=== PATIENT | male | born 1970 | race Caucasian/White ===

== ENCOUNTER 2024-07-26 10:20 | Outpatient (AMB) | payer OTHER, SELFPAY ==
--- NOTE | 2024-07-26 10:57 | PD.ORTHCLVIS ---
Vital signs 07/26/24 10:58 Height 1.78 m Height Method Stated Weight 89.358 kg Weight Measurement Method Standing Scale BMI 28.2 BP 127/78 Blood Pressure Source Automatic Cuff Blood Pressure Location Right Upper Arm Position Sitting Respiration 18 Pulse 63 Pulse Source Monitor Temp 97.7 F Temp Source Temporal Artery Scan Pulse Oximetry (%) 95 Oxygen Delivery Method Room Air Med/Allergies Allergies & Medications Allergies Penicillins Allergy (Verified 07/26/24 10:58) Medication Reconciliation amlodipine 5 mg tablet 5 mg PO QDAY 08/22/23 [History Confirmed 07/26/24] hydrochlorothiazide 25 mg tablet 25 mg PO QAM 04/26/24 [History Confirmed 07/26/24] acetaminophen 500 mg tablet (Acetaminophen Extra Strength) 1,000 mg (2 x 500 mg) PO Q6H PRN pain #90 tabs 04/29/24 [Rx Confirmed 07/26/24] aspirin 81 mg tablet,delayed release 81 mg PO BID #60 tabs 04/29/24 [Rx Confirmed 07/26/24] oxycodone 5 mg tablet 5 mg PO Q6H PRN pain #14 tabs 05/13/24 [Rx Confirmed 07/26/24] Subjective Visit Visit for: follow up visit Immunization / Flu Flu Vaccine in the Last 12 Months: No Flu Vaccine Exclusion Criteria: No Exclusion Criteria History of Present Illness Chief complaint: SX FOLLOW UP Patient is doing well 3 months status post left arthroscopic meniscectomy. He is doing well. Pain is minimal. He wants to return to work,. Pain Pain level (0-10): 3 Pain duration: COMES AND GOES Pain quality: aching Associated signs & symptoms: none Ambulatory data Ambulatory device: none Treatments Improvement with previous injections: No Improvement with PT: No Improvement with NSAIDS: no Review of Systems Review of Systems: All systems negative unless otherwise noted in HPI. Exam Exam Patient is in no acute distress and is cooperative with the examination today. Patient has a normal mood and affect. Breathing is nonlabored. In no respiratory distress. Bilateral extremities were evaluated and demonstrates sensation intact to light touch. Palpable pedal pulses are present. No significant edema is present. Left knee incision is clean dry intact. There is minimal swelling Assessment and Plan Problem List (1) Other tear of medial meniscus, current injury, left knee, initial encounter: Status: Acute Plan: Patient is a pleasant 54-year-old Male status post left partial arthroscopic meniscectomy. He is doing well and would like to return to work. Office Procedures GNS Level of Care Nursing/Assessment Patient Status: Established Patient Nursing Assessment/Reassesment: Medication Reconciliation, Update PMH in EMR and Vital Signs Coordination of Care: Complex Care and Chronic Disease 1-5, Education Complex Pt/Fam, Consent,records obtained, informed consent and Staff clarify orders Established Patient Charge Established Patient Point Assignment: 90 Established Patient Point Charge: EP Level 3 (80-115) Past Medical History Past Medical History Have you ever been diagnosed with any of the following: Neurological Problems Seizures: No Cardiology Problems Congestive Heart Failure: No Hypertension: Yes Respiratory Problems Chronic Obstructive Pulmonary Disease (COPD): No Smoking: No Smoking Exposure: No Genital/Urinary Problems Renal Disease: No Endocrine Problems Diabetes Mellitus Type 1: No Diabetes Mellitus Type 2: No Other Problems Hospitalization: Yes ([facility]) Shingles: No Blood Transfusions: No Blood Transfusion Reaction: No Anesthesia Reactions: No Cancer: No
[2024-07-26 10:58] VITALS: BP 127/78; PULSE 63; RESP 18; TEMP 36.5; O2SAT 95; BMI 28.2
== END 2024-07-26 11:21 | disposition home or self-care (01) ==
LOC: HODSRG 10:20
PROVIDERS: Supervising Provider Orthopaedic Surgery Adult Reconstructive Orthopaedic Surgery; Visit Provider Orthopaedic Surgery Adult Reconstructive Orthopaedic Surgery
DX: S83.242D Other tear of medial meniscus, current injury, left knee, subsequent encounter (principal); X58.XXXD Exposure to other specified factors, subsequent encounter; Z98.890 Other specified postprocedural states; I10 Essential (primary) hypertension
CPT/HCPCS: 99213; G0463